=== PATIENT | male | born 1985 | race Caucasian/White ===

== ENCOUNTER 2021-11-18 01:34 | Emergency (ER) | payer BC ==
[2021-11-18] MEDS ORDERED: MORPHINE 4 MG/ML SYR ONE ×2 (02:32→07:53)
[2021-11-18] MEDS ORDERED: NA CHLORIDE 0.9% 1,000 ML ONE ×3 (02:32→07:53)
[2021-11-18] MEDS ORDERED: ONDANSETRON 4 MG/2 ML VIAL ONE ×2 (02:32→07:53)
[2021-11-18 03:09] LABS: Absolute Lymphocytes (CBC) 0.6 K/uL (0.7-4.9); Hematocrit 45.9 % (39.6-49.0); MPV 8.5 fL (7.6-11.3); RBC Red Blood Cell Count 4.91 M/uL (4.33-5.43)
[2021-11-18 03:15] LABS: Protime INR 1.18
[2021-11-18 03:23] LABS: Blood Morphology Comment NOT SEEN (NOT SEEN); Platelet Estimate DECR; White Blood Cell Scan OK (OK)
[2021-11-18 03:41] LABS: Albumin 3.4 g/dL (3.4-5.0); Bilirubin Direct 0.8 mg/dL (0-0.2); Bilirubin Total 1.7 mg/dL (0.2-1.0); Protein, Total 6.9 g/dL (6.4-8.2)
[2021-11-18 03:43] LABS: Potassium 2.8 mmol/L (3.5-5.1)
[2021-11-18] MEDS ORDERED: KCL 20 MEQ/100 mL IVPB 100 ML IV ONE ×2 (04:18→06:11)
[2021-11-18 04:56] LABS: SARS-COV-2 RT PCR NEGATIVE (NEGATIVE)
--- NOTE | 2021-11-18 06:47 | ER ---
Nurse's Notes [facility] Name: Dhaval Morfin Age: 36 yrs Sex: Male : 1985 Arrival Date: 11/18/2021 Time: 01:39 Bed 19 Private MD: Diagnosis: Alcoholic hepatitis;Secondary thrombocytopenia;Hypokalemia Presentation: 11/18 03:26 Chief complaint: Patient states: "My stomach has been hurting about 12-16 hours". kingsley Coronavirus screen: Vaccine status: Patient reports being unvaccinated. Client denies travel out of the [place] in the last 14 days. Ebola Screen: Patient negative for fever greater than or equal to 101.5 degrees Fahrenheit, and additional compatible Ebola Virus Disease symptoms Patient denies exposure to infectious person. Patient denies travel to an Ebola-affected area in the 21 days before illness onset. Initial Sepsis Screen: Does the patient meet any 2 criteria? No. Patient's initial sepsis screen is negative. Risk Assessment: Do you want to hurt yourself or someone else? Patient reports no desire to harm self or others. Onset of symptoms. 03:26 Acuity: ERIC 3 kingsley 03:26 Method Of Arrival: Ambulatory kingsley 05:08 Initial Sepsis Screen: Does the patient have a suspected source of infection? No. kingsley Patient's initial sepsis screen is negative. Triage Assessment: 03:26 General: Appears distressed, Behavior is cooperative. Musculoskeletal: No deficits kingsley noted. Historical: - Allergies: 02:43 No Known Allergies; kingsley - Home Meds: 02:43 None [Active]; kingsley - PMHx: 02:43 None; kingsley - PSHx: 02:43 None; kingsley - Immunization history:: No vaccines. - Social history:: Smoking status: Patient reports the use of cigarette tobacco products, smokes one pack cigarettes per day. Patient uses alcohol, occasionally. Screenin:10 Abuse screen: Denies threats or abuse. Denies injuries from another. Nutritional kingsley screening: No deficits noted. Tuberculosis screening: No symptoms or risk factors identified. Fall Risk None identified. Assessment: 02:10 General: Appears uncomfortable. Pain: Complains of pain in back and abdomen Quality of kingsley pain is described as crampy, sharp, Pain began "12 to 16 hours ago". Neuro: No deficits noted. Cardiovascular: No deficits noted. Respiratory: No deficits noted. GI: Reports intolerance of fluids, intolerance of food, nausea. : No deficits noted. EENT: No deficits noted. Derm: No deficits noted. Musculoskeletal: No deficits noted. 02:47 Reassessment: Patient appears in no apparent distress at this time. Pt sleeping, kingsley awaiting his CT, with clear, even breaths. . 02:59 General: Appears The lab called to say that we needed a redraw on the CBC, as the kingsley platelet count was 13. informed and a Pt/Ptt sent, as well. . 03:24 General: The lab called to say that the pt's platelet count was 11. informed. . kingsley 04:00 Neuro: No deficits noted. kingsley 04:29 General: The pt was taken to CT and has just returned. Placed on the monitor and IV kingsley potassium started. . 08:30 Reassessment: RECD REPORT FROM SIGRID MORALES. 36 [YO WM P/W BACK PAIN. kingsley 09:15 General: Behavior is pt is sleeping, on cardiac cath lab technologist, in no acute distress.. Smells cb5 of. Pain: Unable to use pain scale. pt asleep. Neuro: Level of Consciousness is easily awakened with stimuli. Cardiovascular: No deficits noted. Respiratory: No deficits noted. GI: No deficits noted. : No deficits noted. EENT: No deficits noted. Derm: redness to mouth. Musculoskeletal: pt asleep. 10:15 Reassessment: No changes from previously documented assessment. cb5 10:35 Reassessment: called pharmacy and asked when banana bag will be ready. cb5 12:42 Reassessment: PT up for discharge at this time. Verbal order received from Dr. Larios ss to increase rate of banana bag to 250 mL/hr and reassess/ discharge after infusion is complete. 12:46 Reassessment: Pt up for discharge is ST on cardia monitor 112-115, diaphoretic, pt cb5 states " can I rest more" Informed charge nurse and M.D. 12:48 Reassessment: 09:15 am Received report from nurse Randy R.N. taking over care for this cb5 patient. Banana bag is being prepared in pharmacy. Vital Signs: 02:10 BP 146 / 80; Pulse 66; Resp 18; Temp 98.6; Pulse Ox 100% on R/A; Weight 117.93 kg; kingsley Height 5 ft. 9 in. (175.26 cm); Pain 7/10; 03:58 BP 137 / 78; Pulse 72; Resp 16; Temp 98.5; Pulse Ox 98% on R/A; kingsley 04:28 BP 145 / 75; Pulse 66; Resp 16; Pulse Ox 99% on R/A; kingsley 06:00 BP 145 / 74; Pulse 88; Resp 18; Temp 98.5; Pulse Ox 98% on R/A; kingsley 06:19 BP 163 / 82; Pulse 74; Resp 18; Pulse Ox 98% on R/A; kingsley 07:00 BP 114 / 70; Pulse 84; Resp 18; Pulse Ox 98% ; kingsley 08:00 BP 140 / 76; Pulse 90; Resp 16; Pulse Ox 98% ; ss 10:00 BP 162 / 65; Pulse 104; Resp 16; Temp 98.6; Pulse Ox 98% ; cb5 11:00 BP 129 / 94; Pulse 115; Resp 16; Pulse Ox 98% ; cb5 12:00 BP 129 / 74; Pulse 112; Resp 18; Pulse Ox 98% ; cb5 13:00 BP 137 / 70; Pulse 102; Resp 16; Temp 98.6; Pulse Ox 98% ; cb5 02:10 Body Mass Index 38.39 (117.93 kg, 175.26 cm) kingsley ED Course: 01:39 Patient arrived in ED. bp1 01:54 Marshal Zuleta MD is Attending Physician. kdr 02:01 Sigrid Maldonado, RN is Primary Nurse. kingsley 02:10 No provider procedures requiring assistance completed. Inserted saline lock: 18 gauge kingsley in right antecubital area, using aseptic technique. 02:10 Patient has correct armband on for positive identification. Placed in gown. Bed in low kingsley position. Call light in reach. Noise minimized. Lights dimmed. Warm blanket given. Verbal reassurance given. 02:29 Lipase Sent. kingsley 02:29 Hepatic Function Sent. kingsley 02:29 CBC with Diff Sent. kingsley 02:29 Basic Metabolic Panel Sent. kingsley 03:13 Protime (+INR) Sent. kingsley 03:13 PTT, Activated Partial Thromb Sent. kingsley 03:13 CBC Smear Scan Sent. kingsley 03:14 PT-INR Sent. kingsley 03:14 Ptt, Activated Sent. kingsley 03:28 Triage completed. kingsley 04:01 Magnesium Sent. kingsley 04:01 playground monitor on. Pulse ox on. NIBP on. kingsley 04:11 COVID-19/FLU A+B (Document "Date of Onset" if Symptomatic) Sent. kingsley 04:33 CT Abd/Pelvis - IV Contrast Only In Process Unspecified. EDMS 04:50 COVID-19/FLU A+B (Document "Date of Onset" if Symptomatic) Sent. kingsley 05:07 Patient placed on monitor for kcl infusion. kingsley 06:02 Hepatitis Panel Sent. kingsley 07:10 Attending Physician role handed off by Marshal Zuleta MD ma2 07:10 Alonzo Larios MD is Attending Physician. ma2 07:42 US Abdomen Limited In Process Unspecified. EDMS 09:21 Primary Nurse role handed off by Sigrid Maldonado, CARMEN eb 09:30 No apparent distress. Appears to be sleeping. cb5 09:30 Accessed Clean \\T\\ dry. Dressing intact. Good blood return. Flushes easily. cb5 09:30 Patient has correct armband on for positive identification. Bed in low position. Call cb5 light in reach. Side rails up X2. 10:30 No apparent distress. Appears to be sleeping. cb5 10:30 Patient has correct armband on for positive identification. Bed in low position. Call cb5 light in reach. Side rails up X2. 10:32 Dolly John, RN is Primary Nurse. cb5 11:30 Patient has correct armband on for positive identification. Bed in low position. Call cb5 light in reach. Side rails up X2. Administered Medications: 07:04 Discontinued: Potassium Chloride 20 mEq IV at calculated rate once; administer over 1-2 kingsley hours 02:45 Drug: morphine 4 mg Route: IVP; Site: right antecubital; kingsley 02:49 Follow up: Response: No adverse reaction; Pain is decreased kingsley 02:45 Drug: Zofran (Ondansetron) 4 mg Route: IVP; Site: right antecubital; kingsley 02:49 Follow up: Response: No adverse reaction kingsley 02:45 Drug: NS 0.9% 1000 ml Route: IV; Rate: 1 bolus; Site: right antecubital; kingsley 04:28 Drug: Potassium Chloride 20 mEq Route: IV; Rate: calculated rate; Site: right kingsley antecubital; 06:17 Follow up: Response: No adverse reaction; IV Status: Completed infusion; IV Intake: kingsley 100ml 06:18 Drug: Potassium Chloride 20 mEq Route: IV; Rate: calculated rate; Site: right kingsley antecubital; 07:30 Drug: NS 0.9% 1000 ml Route: IV; Rate: 1 bolus; Site: right antecubital; kingsley 07:30 Drug: Zofran (Ondansetron) 4 mg Route: IVP; Site: right antecubital; kingsley 07:30 Drug: morphine 4 mg Route: IVP; Site: right antecubital; kingsley 07:30 Drug: Pepcid (famotidine) 20 mg Route: IVP; Site: right antecubital; kingsley 11:10 Drug: Banana Bag - (NS 0.9% 1000 ml, foLIC Acid 1 mg, Thiamine 100 mg, Multivitamin 1 cb5 amp) Route: IV; Rate: 100 ml/hr; Site: right antecubital; 12:41 Follow up: Verbal order given by Dr. Larios to incrase rate to 250 mL/ hr at this time.ss Intake: 06:17 IV: 100ml; Total: 100ml. kingsley Output: 06:19 Urine: 400ml (Voided); Total: 400ml. kingsley Outcome: 04:00 Condition: stable kingsley 06:47 Discharge ordered by . siobhan 09:28 Discharge ordered by MD. rodriguez 16:28 Patient left the ED. eb Signatures: Dispatcher [employer] EDMS Marshal Zuleta MD MD kdr Smirch, Shelby, RN RN Alonzo Larios MD MD ma2 Botello, Elizabeth Liliya Gutiérrez Brenda RN RN Dolly Herrera RN RN cb5 Corrections: (The following items were deleted from the chart) 06:01 04:45 Potassium Chloride 20 mEq IV at calculated rate in right antecubital kingsley kingsley 12:13 10:35 Reassessment: called pharmacy and asked when banana bag will be ready cb5 cb5 12:34 08:00 BP 140 / 76; Pulse 9bpm; Resp 16bpm; Pulse Ox 98%; kingsley ss
--- NOTE | 2021-11-18 06:47 | EDPHYS ---
Physician Documentation [facility] Name: Dhaval Morfin Age: 36 yrs Sex: Male : 1985 Arrival Date: 11/18/2021 Time: 01:39 Bed 19 Private MD: ED Physician Alonzo Larios HPI: 11/18 02:20 This 36 yrs old Male presents to ER via Unassigned with complaints of Back Pain. kdr 02:20 The patient presents with pain that is acute, with no known mechanism of injury. The kdr symptoms are located in the low back. Onset: The symptoms/episode began/occurred suddenly, 16 hour(s) ago. The pain does not radiate. Associated signs and symptoms: Pertinent positives: abdominal pain, nausea, vomiting, weakness, Pertinent negatives: constipation, dysuria, fever, headache, hematuria, incontinence, numbness, tingling, urinary retention. The problem was sustained without known cause. Modifying factors: The patient symptoms are alleviated by nothing, the patient symptoms are aggravated by nothing. Severity of symptoms: At their worst the symptoms were moderate, severe, incapacitating, just prior to arrival, in the emergency department the symptoms are unchanged. The patient has not experienced similar symptoms in the past. The patient has not recently seen a physician. Historical: - Allergies: 02:43 No Known Allergies; kingsley - Home Meds: 02:43 None [Active]; kingsley - PMHx: 02:43 None; kingsley - PSHx: 02:43 None; kingsley - Immunization history:: No vaccines. - Social history:: Smoking status: Patient reports the use of cigarette tobacco products, smokes one pack cigarettes per day. Patient uses alcohol, occasionally. ROS: 02:20 Constitutional: Negative for fever, chills, and weight loss, Eyes: Negative for injury, kdr pain, redness, and discharge, ENT: Negative for injury, pain, and discharge, Neck: Negative for injury, pain, and swelling, Cardiovascular: Negative for chest pain, palpitations, and edema, Respiratory: Negative for shortness of breath, cough, wheezing, and pleuritic chest pain, : Negative for injury, bleeding, discharge, and swelling, MS/Extremity: Negative for injury and deformity, Skin: Negative for injury, rash, and discoloration, Neuro: Negative for headache, weakness, numbness, tingling, and seizure activity. Psych: Negative for depression, anxiety, suicide ideation, homicidal ideation, and hallucinations, Allergy/Immunology: Negative for hives, rash, and allergies, Endocrine: Negative for neck swelling, polydipsia, polyuria, polyphagia, and marked weight changes, Hematologic/Lymphatic: Negative for swollen nodes, abnormal bleeding, and unusual bruising. 02:20 Abdomen/GI: Positive for abdominal pain, nausea and vomiting, Negative for constipation, abdominal cramps, abdominal distension, anorexia, dysphagia, hematemesis, black/tarry stool, rectal pain, rectal bleeding. 02:20 Back: Positive for pain at rest, pain with movement, of the mid back area. Exam: 02:20 Constitutional: This is a well developed, well nourished patient who is awake, alert, kdr and in no acute distress. Head/Face: Normocephalic, atraumatic. Eyes: Pupils equal round and reactive to light, extra-ocular motions intact. Lids and lashes normal. Conjunctiva and sclera are non-icteric and not injected. Cornea within normal limits. Periorbital areas with no swelling, redness, or edema. Neck: Trachea midline, no thyromegaly or masses palpated, and no cervical lymphadenopathy. Supple, full range of motion without nuchal rigidity, or vertebral point tenderness. No Meningismus. Chest/axilla: Normal chest wall appearance and motion. Nontender with no deformity. No lesions are appreciated. Cardiovascular: Regular rate and rhythm with a normal S1 and S2. No gallops, murmurs, or rubs. Normal PMI, no JVD. No pulse deficits. Respiratory: Lungs have equal breath sounds bilaterally, clear to auscultation and percussion. No rales, rhonchi or wheezes noted. No increased work of breathing, no retractions or nasal flaring. Skin: Warm, dry with normal turgor. Normal color with no rashes, no lesions, and no evidence of cellulitis. MS/ Extremity: Pulses equal, no cyanosis. Neurovascular intact. Full, normal range of motion. Neuro: Awake and alert, GCS 15, oriented to person, place, time, and situation. Cranial nerves II-XII grossly intact. Motor strength 5/5 in all extremities. Sensory grossly intact. Cerebellar exam normal. Normal gait. Psych: Awake, alert, with orientation to person, place and time. Behavior, mood, and affect are within normal limits. 02:20 Abdomen/GI: Inspection: abdomen appears normal, Bowel sounds: diminished, in all quadrants, Palpation: Vital Signs: 02:10 BP 146 / 80; Pulse 66; Resp 18; Temp 98.6; Pulse Ox 100% on R/A; Weight 117.93 kg; kingsley Height 5 ft. 9 in. (175.26 cm); Pain 7/10; 03:58 BP 137 / 78; Pulse 72; Resp 16; Temp 98.5; Pulse Ox 98% on R/A; kingsley 04:28 BP 145 / 75; Pulse 66; Resp 16; Pulse Ox 99% on R/A; kingsley 06:00 BP 145 / 74; Pulse 88; Resp 18; Temp 98.5; Pulse Ox 98% on R/A; kingsley 06:19 BP 163 / 82; Pulse 74; Resp 18; Pulse Ox 98% on R/A; kingsley 07:00 BP 114 / 70; Pulse 84; Resp 18; Pulse Ox 98% ; kingsley 08:00 BP 140 / 76; Pulse 90; Resp 16; Pulse Ox 98% ; ss 10:00 BP 162 / 65; Pulse 104; Resp 16; Temp 98.6; Pulse Ox 98% ; cb5 11:00 BP 129 / 94; Pulse 115; Resp 16; Pulse Ox 98% ; cb5 12:00 BP 129 / 74; Pulse 112; Resp 18; Pulse Ox 98% ; cb5 13:00 BP 137 / 70; Pulse 102; Resp 16; Temp 98.6; Pulse Ox 98% ; cb5 02:10 Body Mass Index 38.39 (117.93 kg, 175.26 cm) kingsley MDM: 02:20 Data reviewed: vital signs, nurses notes, lab test result(s), radiologic studies. kdr Counseling: I had a detailed discussion with the patient and/or guardian regarding: the historical points, exam findings, and any diagnostic results supporting the discharge/admit diagnosis, lab results, radiology results. 06:47 Patient medically screened. kdr 06:50 ED course: The patient's pain resolved at time of discharge. He was happy with the care kdr provided and the plan for discharge and follow-up. 09:08 Response to treatment: the patient's symptoms have markedly improved after treatment. [facility] ED course: . 09:23 Differential diagnosis: sprain, vertebral fracture. ED course: Received signout from [facility] Dr. kohler, as patient with back pain, pending work-up, and disposition. I saw and evaluated the patient, and talked him to history. Patient has chronic back pain that has resolved at this time, however he stated that he also drinks alcohol heavily. At this point patient does not have any symptoms. And would like to go home. Vital signs are all within normal limits, documented in the chart that pulse is 9 however this was entered by mistake, pulse is 87 bpm at this time. Lab work shows elevation in liver transaminases, to 800s, and thrombocytopenia with a platelet of 11,000. Patient is not bleeding anywhere, and he does not have any abdominal pain at this time or right upper quadrant abdominal discomfort. 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 Other differential diagnosis may include Josiane-Fletcher virus, HIV, ITP or TTP although these are unlikely. Patient does not need platelet transfusion at this time as he does not have any bleeding and platelet is more than 10,000. He will need follow-up with GI for further evaluation of hepatitis, I explained to him risk of having low platelet, may include bleeding, I explained and recommended return to ER immediately for platelet transfusion if you have any bleeding, give strict return precaution. He states that he will follow-up with GI doctor on Friday or Friday i.e. 2 days from now. He also understand that he needs to return to ER immediately for any new symptoms or worsening of current symptoms.. 09:32 ED course: Patient also has hypokalemia, given potassium IV, symptoms improved and will [facility] prescribe potassium tablets as well. I gave strict return precautions. 11/18 02:20 Order name: Basic Metabolic Panel; Complete Time: 03:44 kdr 11/18 02:20 Order name: CBC with Diff; Complete Time: 03:30 kdr 11/18 02:20 Order name: Hepatic Function; Complete Time: 03:44 kdr 11/18 02:20 Order name: Lipase; Complete Time: 03:44 kdr 11/18 02:56 Order name: PT-INR cs9 11/18 02:56 Order name: Ptt, Activated cs9 11/18 02:57 Order name: Protime (+INR); Complete Time: 03:30 EDMS 11/18 02:57 Order name: PTT, Activated Partial Thromb; Complete Time: 03:30 EDMS 11/18 03:11 Order name: CBC Smear Scan; Complete Time: 03:30 EDMS 11/18 03:28 Order name: COVID-19/FLU A+B (Document "Date of Onset" if Symptomatic); Complete Time: kdr 05:21 11/18 03:43 Order name: [place] Screen Profile; Complete Time: 04:21 kdr 11/18 03:48 Order name: Magnesium; Complete Time: 04:21 la1 11/18 04:33 Order name: Hepatitis Panel la1 11/18 02:20 Order name: IV Saline Lock; Complete Time: 02:29 kdr 11/18 02:20 Order name: Labs collected and sent; Complete Time: 02:29 kdr 11/18 02:20 Order name: CT Abd/Pelvis - IV Contrast Only kdr 11/18 07:01 Order name: US Abdomen Limited; Complete Time: 08:32 kdr Administered Medications: 07:04 Discontinued: Potassium Chloride 20 mEq IV at calculated rate once; administer over 1-2 kingsley hours 02:45 Drug: morphine 4 mg Route: IVP; Site: right antecubital; kingsley 02:49 Follow up: Response: No adverse reaction; Pain is decreased kingsley 02:45 Drug: Zofran (Ondansetron) 4 mg Route: IVP; Site: right antecubital; kingsley 02:49 Follow up: Response: No adverse reaction kingsley 02:45 Drug: NS 0.9% 1000 ml Route: IV; Rate: 1 bolus; Site: right antecubital; kingsley 04:28 Drug: Potassium Chloride 20 mEq Route: IV; Rate: calculated rate; Site: right kingsley antecubital; 06:17 Follow up: Response: No adverse reaction; IV Status: Completed infusion; IV Intake: kingsley 100ml 06:18 Drug: Potassium Chloride 20 mEq Route: IV; Rate: calculated rate; Site: right kingsley antecubital; 07:30 Drug: NS 0.9% 1000 ml Route: IV; Rate: 1 bolus; Site: right antecubital; kingsley 07:30 Drug: Zofran (Ondansetron) 4 mg Route: IVP; Site: right antecubital; kingsley 07:30 Drug: morphine 4 mg Route: IVP; Site: right antecubital; kingsley 07:30 Drug: Pepcid (famotidine) 20 mg Route: IVP; Site: right antecubital; kingsley 11:10 Drug: Banana Bag - (NS 0.9% 1000 ml, foLIC Acid 1 mg, Thiamine 100 mg, Multivitamin 1 cb5 amp) Route: IV; Rate: 100 ml/hr; Site: right antecubital; 12:41 Follow up: Verbal order given by Dr. Larios to incrase rate to 250 mL/ hr at this time.ss Disposition Summary: 11/18/21 09:28 Discharge Ordered Location: Home(11/18/21 09:28) ma2 Condition: Stable(11/18/21 09:28) ma2 Diagnosis - Alcoholic hepatitis ma2 - Secondary thrombocytopenia ma2 - Hypokalemia ma2 Followup: ma2 - With: Private Physician - When: Tomorrow - Reason: Continuance of care Discharge Instructions: - Discharge Summary Sheet ma2 - Eating Plan for Hepatitis ma2 - Potassium Content of Foods ma2 - Alcohol Intoxication, [id number] ma2 - Autoimmune Hepatitis, Adult ma2 - Alcohol Abuse and Nutrition ma2 - Hypokalemia ma2 - Thrombocytopenia, [id number] ma2 Forms: - Medication Reconciliation Form ma2 - Thank You Letter ma2 - Antibiotic Education ma2 - Prescription Opioid Use ma2 Prescriptions: - Klor-Con 10 10 mEq Oral Tablet Sustained Release - take 1 tablet by ORAL route once daily; 20 tablet; Refills: 0, Product ma2 Selection Permitted Signatures: Dispatcher [employer] EDMI Marshal Kohler MD MD kdr David Truong, DIRECTOR STATISTICAL PROGRAMMING-C DIRECTOR STATISTICAL PROGRAMMING-Cla1 Alonzo Larios MD MD ma2 Sigrid Maldonado, RN Dolly Cota, RN RN Samira Calderon RN ss Corrections: (The following items were deleted from the chart) 02:52 02:49 CBC Smear Scan ordered. EDMI EDMS 06:59 06:47 Home kdr kdr 06:59 06:47 new kdr kdr 06:59 06:47 have improved kdr kdr 06:59 06:47 Stable kdr kdr 06:59 06:47 Unspecified renal colic kdr kdr 06:59 06:47 Kidney stone kdr kdr
[2021-11-18] MEDS ORDERED: FAMOTIDINE 20 MG/2 ML VIAL IV ONE (07:53)
--- NOTE | 2021-11-18 08:11 | RAD REPORT ---
EXAM DESCRIPTION: US - Abdomen Exam Limited - 11/18/2021 7:42 am CLINICAL HISTORY: Abdominal pain. FINDINGS: The gallbladder wall is not thickened. A gallstone is not seen. The biliary tree is normal caliber. Fatty liver IMPRESSION: Unremarkable gallbladder ultrasound.
[2021-11-18] MEDS ORDERED: FOLIC ACID 1 MG, MULTIVITAMINS INJ 10 ML, THIAMINE HCL 100 MG in NA CHLORIDE 0.9% 1,000 ML IV ONE (11:00)
--- NOTE | 2021-11-18 15:39 | RAD REPORT ---
EXAM DESCRIPTION: CT - Abdomen Pelvis W Contrast - 11/18/2021 8:00 am CLINICAL HISTORY: 36 years Male ABD PAIN TECHNIQUE: CT of the abdomen and pelvis using intravenous contrast arterial phase of the upper abdom en and venous phase through the abdomen and pelvis. Coronal and sagittal reformats performed. All CT scans at this facility use dose modulation, iterative reconstruction, and/or weight based dosing when appropriate to reduce radiation dose to as low as reasonably achievable. COMPARISON: None. FINDINGS: Lower chest: Minimal bibasilar dependent atelectasis. Abdomen/Pelvis: Liver: No focal lesion. Gallbladder: No calcified stone. Pancreas: Within normal limits. Spleen: Within normal limits. Kidney: No stone or hydronephrosis. No focal lesion. Adrenal glands: Within normal limits. Vascular structures: Unremarkable. Bowel: No bowel distention. Appendix: Normal. Peritoneum: No free fluid or free air. Lymph Nodes: No lymphadenopathy. Reproductive: Unremarkable. Urinary bladder: Unremarkable. Osseous structures: Mild multilevel degenerative changes. Soft tissues: Unremarkable. IMPRESSION: No acute findings. Electronically signed by: Jason Carlson MD 11/18/2021 6:14 AM LOOM FIXER SUPERVISOR Due to temporary technical issues with the PACS/Fluency reporting system, reports are being signed by the in house radiologists without review as a courtesy to insure prompt reporting. The interpreting radiologist is fully responsible for the content of the report.
[2021-11-18 16:39] VITALS: O2SAT 98
[2021-11-18 16:48] VITALS: TEMP 98.6
[2021-11-18 16:52] VITALS: BP 137/70
[2021-11-20 19:04] LABS: HBsAG Nonreactive (Nonreactive)
== END 2021-11-18 16:28 | disposition home or self-care (01) ==
LOC: ER 01:34
DX: K70.10 Alcoholic hepatitis without ascites (principal); D69.59 Other secondary thrombocytopenia; E87.6 Hypokalemia; F17.210 Nicotine dependence, cigarettes, uncomplicated; Z20.822 Contact with and (suspected) exposure to COVID-19
CPT/HCPCS: 96365; 85025; 80048; 36415; 83735; 86308; 85610; 80076; 85730; 83690; 0240U; 80074; 74177; 76705; 96375; 99285; 96366; Q9967; J3411; J3480 ×2; J7030 ×4; J2405 ×2

== ENCOUNTER 2021-11-19 16:37 | Emergency (ER) | payer BC ==
[2021-11-19] MEDS ORDERED: EPINEPHrine 1 MG/10 ML SYR IV ONE (16:38)
[2021-11-19] MEDS ORDERED: SUCCINYLCHOLINE 20 MG/ML (10 ML) IV ONE ×2 (16:38→21:21)
[2021-11-19] MEDS ORDERED: D50W 25 GM/50 ML SYRINGE IV ONE ×2 (16:38→19:27)
[2021-11-19] MEDS ORDERED: NA CHLORIDE 0.9% 1,000 ML IV ONE (16:38)
[2021-11-19] MEDS ORDERED: Caclcium Chloride 10% INJ SYR IV ONE (16:38)
[2021-11-19] MEDS ORDERED: NA CHLORIDE 0.9% 500 ML IV ONE (16:38)
[2021-11-19] MEDS ORDERED: NA CHLORIDE 0.9% 500 ML ONE ×3 (17:29→22:51)
[2021-11-19] MEDS ORDERED: NA CHLORIDE 0.9% 1,000 ML ONE (17:33)
[2021-11-19 17:38] LABS: Absolute Lymphocytes (CBC) 0.6 K/uL (0.7-4.9); Hematocrit 43.6 % (39.6-49.0); Lymphocytes % 2.4 % (15.3-44.8); MPV 10.3 fL (7.6-11.3); RBC Red Blood Cell Count 4.41 M/uL (4.33-5.43)
[2021-11-19] MEDS ORDERED: PROMETHAZINE INJ 25 MG/ML AMP ONE (17:43)
[2021-11-19] MEDS ORDERED: PANTOPRAZOLE 40 MG INJ ONE (17:43)
[2021-11-19] MEDS ORDERED: ONDANSETRON 4 MG/2 ML VIAL ONE (17:43)
[2021-11-19] MEDS ORDERED: OCTREOTIDE ACETATE 100 MCG/ML ONE (17:44)
[2021-11-19] MEDS ORDERED: OCTREOTIDE 500 MCG in NA CHLORIDE 0.9% 500 ML IV SCH (18:00)
[2021-11-19] MEDS ORDERED: PANTOPRAZOLE INJ 80 MG in NA CHLORIDE 0.9% 250 ML IV SCH (18:00)
[2021-11-19] MEDS ORDERED: NA CHLORIDE 0.9% 250 ML ONE ×2 (18:01→21:31)
[2021-11-19 18:02] LABS: Albumin 2.8 g/dL (3.4-5.0); Bilirubin Direct 3.1 mg/dL (0-0.2); Magnesium 1.9 mg/dL (1.8-2.4); Potassium 4.7 mmol/L (3.5-5.1); Protein, Total 5.4 g/dL (6.4-8.2)
[2021-11-19 18:05] LABS: Bilirubin Total 5.9 mg/dL (0.2-1.0); Protime INR 9.82; Troponin (Emerg Dept Use Only) 0.98 ng/mL (0.0-0.045)
--- NOTE | 2021-11-19 18:30 | RAD REPORT ---
EXAM DESCRIPTION: CT - Head C Spine Cap Ofelia Swain - 11/19/2021 6:14 pm CLINICAL HISTORY: Trauma, head and neck injury. Chest, abdomen and pelvis pain. significant thrombocytopenia. abdominal pain, headache COMPARISON: No comparisons TECHNIQUE: CT head without contrast. CT cervical spine without contrast with coronal and sagittal reformatted images. CT chest, abdomen and pelvis with IV contrast (approximately 100 mL nonionic IV contrast) with cedeno l and sagittal reformatted images of the spine. All CT scans are performed using dose optimization technique as appropriate and may include automated exposure control or mA/KV adjustment according to patient size. FINDINGS: CT HEAD WITHOUT CONTRAST: No intracranial hemorrhage, hydrocephalus or extra-axial fluid collection. No areas of brain edema o r midline shift. The paranasal sinuses and mastoids are clear. The calvarium is intact. CT CERVICAL SPINE WITHOUT CONTRAST: No fracture or subluxation. The prevertebral soft tissues are normal in thickness. CT CHEST, ABDOMEN, PELVIS WITH CONTRAST: There is a moderate area of lung consolidation in superior segment left lower lobe likely representin g infiltrate/pneumonia.No pneumothorax or pericardial/pleural fluid. No evidence of intra-abdominal visceral injury, free fluid or free air. No concerning pelvic findings. No fractures. IMPRESSION: Moderate area of pneumonia superior segment lower lobe. No additional acute abnormality detected.
--- NOTE | 2021-11-19 18:41 | RAD REPORT ---
EXAM DESCRIPTION: RAD - Chest Single View - 11/19/2021 6:33 pm CLINICAL HISTORY: DYSPNEA Chest pain. COMPARISON: No comparisons FINDINGS: Portable technique limits examination quality. Mild interstitial opacities bilaterally suggest a mild viral infection. The heart is upper limit of n ormal in size. No displaced fractures.
[2021-11-19] MEDS ORDERED: ACETYLCYSTEINE IV SCH ×5 (19:01→23:00)
[2021-11-19] MEDS ORDERED: D5W IV SCH ×4 (19:01→23:00)
[2021-11-19] MEDS ORDERED: WATER IV SCH (19:11)
[2021-11-19] MEDS ORDERED: DEXTROSE 5% IV SCH (19:11)
[2021-11-19] MEDS ORDERED: D5 0.45 NS 1,000 ML IV ONE (19:27)
[2021-11-19] MEDS ORDERED: VITAMIN K (ADULT) 10 MG/ML ONE ×2 (19:33→22:06)
[2021-11-19] MEDS ORDERED: PIPERACIL/TAZO 3.375 GM VIAL IV ONE (19:59)
[2021-11-19] MEDS ORDERED: WATER FOR INJ,STERILE 1,000 ML with NA BICARB 8.4% 150 MEQ IV SCH ×2 (20:00)
[2021-11-19] MEDS ORDERED: NA CHLORIDE 0.9% 100 ML ONE (20:02)
--- NOTE | 2021-11-19 20:04 | ER ---
Nurse's Notes [facility] Name: Dhaval Morfin Age: 36 yrs Sex: Male : 1985 Arrival Date: 11/19/2021 Time: 16:39 Bed 2 Private MD: Diagnosis: Hepatic failure, unspecified with coma;Acute kidney failure, unspecified;GI Bleed/ Gastrointestinal hemorrhage, unspecified-UPPER, MASSIVE;Anemia, unspecified;Elevated white blood cell count;Abnormal coagulation profile;Coagulation defect, unspecified;Acute respiratory failure with hypoxia;Hypotension, unspecified;Cardiogenic shock;Hyperkalemia Presentation: 11/19 17:04 Chief complaint: Patient states: Worse since his last visit here. Vomiting blood today. ll1 Bruising noted to both eyes, eyes reddened. Bruising noted to all extremities. Very lethargic and weak. Coronavirus screen: Client denies travel out of the [place] in the last 14 days. At this time, the client does not indicate any symptoms associated with coronavirus-19. Ebola Screen: Patient denies travel to an Ebola-affected area in the 21 days before illness onset. Initial Sepsis Screen: Does the patient meet any 2 criteria? RR > 20 per min. HR > 90 bpm. Does the patient have a suspected source of infection? Yes: Acute abdominal pain. Risk Assessment: Do you want to hurt yourself or someone else? Patient reports no desire to harm self or others. Onset of symptoms was November 17, 2021. 17:04 Method Of Arrival: Wheelchair ll1 17:04 Acuity: ERIC 2 ll1 11/20 05:22 Compressions began at 05:22. mk Historical: - Allergies: 00:03 No Known Allergies; as6 - Home Meds: 00:03 None [Active]; as6 - PMHx: 00:03 Bipolar disorder; as6 - PSHx: 00:03 hernia; as6 - Immunization history:: Adult Immunizations up to date. - Social history:: Smoking status: Patient reports the use of cigarette tobacco products, smokes one pack cigarettes per day. Screenin/10 18:41 Abuse screen: Denies threats or abuse. Nutritional screening: No deficits noted. jd3 Tuberculosis screening: No symptoms or risk factors identified. Fall Risk IV access (20 points). Mental Status- Overestimates/Forgets Limitations (15 pts.). Total Xavier Fall Scale indicates Low Risk Score (25-44 pts). Fall prevention measures have been instituted. Side Rails Up X 2 Placed close to Nursing Station Frequent Obs/Assesments occuring. Assessment: 17:30 General: Appears distressed, uncomfortable, Behavior is cooperative, anxious, restless, jd3 Reports fatigue for 2-3 days. Pain: Complains of pain in abdomen Quality of pain is described as sharp, tender. Neuro: Level of Consciousness is awake, obeys commands, lethargic, Oriented to person, place, situation. Cardiovascular: Heart tones present Patient's skin is warm and dry. Rhythm is irregular. Respiratory: Reports shortness of breath at rest Airway is patent Respiratory effort is labored, shallow, Respiratory pattern is symmetrical, hyperventilation tachypnea Breath sounds are clear bilaterally. GI: Abdomen is round distended, Abd is soft X 4 quads Abdomen is tender to palpation X 4 quads. : No signs and/or symptoms were reported regarding the genitourinary system. Derm: Bruising that is dark purple, on right eye, left eye, abdomen, right arm and left arm dried blood noted in mouth. Musculoskeletal: No signs and/or symptoms reported regarding the musculoskeletal system. 18:00 Reassessment: No changes from previously documented assessment. Patient and/or family jd3 updated on plan of care and expected duration. Pain level reassessed. blood products started, see blood administration charting. 18:30 Reassessment: No changes from previously documented assessment. Patient and/or family jd3 updated on plan of care and expected duration. Pain level reassessed. 18:45 Reassessment: No changes from previously documented assessment. Patient and/or family jd3 updated on plan of care and expected duration. Pain level reassessed. pt continues to report shortness of breath with abdominal pain. pt continues to have tachypnea. mother at bedside. report given to Enmanuel RN Patient states symptoms have not improved. 20:49 General: Behavior is agitated, restless. as6 21:26 Respiratory: Ventilator assessment: ET Tube: 7.5 23 cm at gum line. Ventilator Mode: as6 Assist Control (AC) Tidal Volume: 600 Respiratory Rate: 18 FiO2: 100%. PEEP: 5 HOB > 30 degrees. Suction provided. 21:26 General: intubation performed by Dr. Xiang, 3 unsuccessful attempts, during insertion of as6 et tube dark red blood coming out of tube during each unsuccessful attempt. approx 2000 ml of EBL . 23:50 Respiratory: Ventilator assessment: ET Tube: 7.5 23 cm at gum line. Ventilator Mode: as6 Assist Control (AC) Tidal Volume: 600 Respiratory Rate: 18 FiO2: 75 PEEP: 5 HOB > 30 degrees. 11/20 05:22 CPR assessment: unresponsive, no respiratory effort, intubated, mechanical ventilation, mk cyanotic, pale, pulses present w/ compressions, asystole on monitor. 05:22 Reassessment: Compressions started 0522. mk 05:24 Reassessment: pulse check 0524. mk 05:26 Cardiac rhythm is asystole. mk 05:26 Reassessment: TOD called 05. mk 07:00 Reassessment: awaiting home. PD and family at bedside. jd3 Vital Signs: 11/19 17:04 BP 100 / 46; Pulse 127; Resp 32; Temp 96.8; Pulse Ox 99% ; ll1 18:41 BP 96 / 52; Pulse 114; Resp 38 S; Temp 97.2(TE); Pulse Ox 97% on R/A; jd3 18:45 Weight 118 kg (R); jd3 19:35 BP 109 / 55; Pulse 117; Resp 44; Temp 98.0; Pulse Ox 97% ; st1 20:57 BP 81 / 33; Pulse 114; Resp 27 S; Pulse Ox 70% on Non-rebreather mask; as6 21:12 BP 104 / 92; Pulse 94; Resp 34 S; as6 21:35 BP 115 / 73; Pulse 97; Resp 18 A; Pulse Ox 91% on 100% FiO2 ETT vent; as6 22:00 BP 67 / 21; Pulse 85; Resp 24 A; Pulse Ox 96% on 100% FiO2 ETT vent; as6 22:15 BP 89 / 21; Pulse 84; Resp 22 A; Pulse Ox 98% on 100% FiO2 ETT vent; as6 22:30 BP 91 / 25; Pulse 91; Resp 27 A; Pulse Ox 100% on 100% FiO2 ETT vent; as6 22:45 BP 85 / 47; Pulse 92; Resp 27 A; Pulse Ox 100% on 100% FiO2 ETT vent; as6 23:00 BP 100 / 18; Pulse 89; Resp 28 A; Pulse Ox 100% on 100% FiO2 ETT vent; as6 23:15 BP 92 / 18; Pulse 91; Resp 28 A; Pulse Ox 100% on 100% FiO2 ETT vent; as6 23:30 BP 100 / 28; Pulse 102; Resp 28 A; Pulse Ox 100% on 100% FiO2 ETT vent; as6 23:45 BP 112 / 25; Pulse 102; Resp 26; Temp 94.6(C); Pulse Ox 100% on 100% FiO2 ETT vent; 6 11/20 00:00 BP 96 / 27; Pulse 99; Resp 28 A; Temp 95.3(C); Pulse Ox 100% on 75% FiO2 ETT vent; 00:30 BP 95 / 26; Pulse 102; Resp 29 A; Temp 95.9(C); Pulse Ox 99% on 75% FiO2 ETT vent; 6 01:00 BP 105 / 67; Pulse 86; Resp 30 A; Temp 96.5(C); Pulse Ox 100% on 75% FiO2 ETT vent; 01:30 BP 94 / 61; Pulse 86; Resp 31 A; Temp 97.3(C); Pulse Ox 98% on 75% FiO2 ETT vent; 02:00 BP 82 / 21; Pulse 89; Resp 29 A; Temp 98.0(C); Pulse Ox 100% on 75% FiO2 ETT vent; 02:30 BP 89 / 13; Pulse 90; Resp 29 A; Temp 98.8(C); Pulse Ox 85% on 100% FiO2 ETT vent; 03:00 BP 74 / 18; Pulse 84; Resp 27 A; Temp 99.6(C); Pulse Ox 99% on 100% FiO2 ETT vent; 6 03:30 BP 69 / 39; Pulse 86; Resp 26 A; Temp 100.2(C); Pulse Ox 95% on 100% FiO2 ETT vent; 6 04:00 BP 68 / 17; Pulse 100; Resp 21 A; Temp 100.3(C); Pulse Ox 90% on 100% FiO2 ETT vent; as6 04:30 BP 85 / 48; Pulse 72; Resp 11 A; Temp 100.3(C); Pulse Ox 97% on 100% FiO2 ETT vent; as6 05:00 BP 51 / 39; Pulse 83; Resp 17 A; Temp 100.2(C); Pulse Ox 89% on 100% FiO2 ETT vent; as6 ED Course: 11/19 16:39 Patient arrived in ED. ds1 17:02 Arm band placed on Patient placed in an exam room, on a stretcher. ll1 17:05 Triage completed. ll1 17:06 Troy Brock PA is [facility]. jr8 17:06 Santi Carbajal MD is Attending Physician. jr8 17:25 Holden Giraldo, CARMEN is Primary Nurse. jd3 18:14 CT Traumagram (Head C Spine CAP W Con) In Process Unspecified. EDMS 18:32 XRAY Chest (1 view) In Process Unspecified. EDMS 18:42 Patient has correct armband on for positive identification. Placed in gown. Bed in low jd3 position. Call light in reach. Side rails up X2. 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 Pulse ox on. NIBP on. 19:25 initiated a transfer with Mayra Sanchez from [facility] Transfer [place]. [facility] mw2 denied to capacity. 19:30 initiated a transfer with Cary Sanchez from [facility] [place]. [facility] denied due to capacity. 19:30 Assisted provider with central line placement. Set up central line tray. Triple lumen as6 line placed in right femoral. Line placed by Troy WALLACE Placement verified by blood return, Dressed with Tegaderm, Patient tolerated well. 19:35 initiated a transfer with [facility]. [facility] denied due to capacity. mw2 19:36 Terry cath inserted, using sterile technique, 16 Fr., by wi, balloon inflated, to vg1 gravity drainage, Patient tolerated well. 19:40 Initiated a transfer with [facility] Transfer Center. [facility] denied due to capacity. mw2 19:51 Attending Physician role handed off by Santi Carbajal MD angel 19:51 Raghavendra Simmons MD is Attending Physician. angel 21:26 Assisted provider with intubation using 7.5 mm ETT via oral route. ET tube secured at as6 23cm at the teeth. Set up intubation tray. Placement verified by auscultating bilateral breath sounds, End-tidal CO2 montioring CXR, Patient tolerated well. 21:29 initiated a transfer with Eugene from [facility] transfer center. mw2 21:35 NGT: inserted 16 Fr. via right nare. verified placement of air over stomach, verified as6 return of gastric contents, Placement verified by X-ray, to continuous suction. Returned bright red blood. 21:40 [facility] denied due to capacity. mw2 21:42 initiated a transfer with Guerda from [facility] in [place]. mw2 They denied due to capacity. 21:45 Chest Single View XRAY In Process Unspecified. EDMS 21:47 initiated a transfer with Tana from [facility] in [place] mw2 Station. They denied due to capacity. 21:54 initiated a transfer with Micah from [facility] in [place], [place]. mw2 21:59 [facility] denied due to [place]. mw2 23:00 Assisted provider with central line placement. Set up central line tray. Triple lumen as6 line placed in left femoral. Line placed by Raghavendra Simmons MD Placement verified by blood return, Dressed with Tegaderm, Patient tolerated well. 23:20 Rogers Carbajal MD is Hospitalizing Provider. angel 23:28 initiated a transfer with Magdalena from [facility]. mw2 11/20 00:00 [facility] denied due to capacity. mw2 00:00 Terry cath removed intact, balloon deflated. as6 00:00 Terry cath inserted, using sterile technique, 16 Fr., by wi, balloon inflated, to as6 gravity drainage. 00:05 reinitiated a transfer with Susannah from [facility] Transfer [place]. [facility] denied due mw2 to capacity. 05:56 Police called Serg SUTTON to call out the Machine Silver Stripper for the patient. mw2 06:26 Raghavendra Simmons MD is Pronouncing Provider. angel Administered Medications: 02:02 Discontinued: D5 -1/4 NS 1000 ml IV at 100 ml/hr continuous angel 11/19 17:53 Drug: Octreotide 50 mcg Route: IV; Rate: calculated rate; Site: left hand; jd3 17:53 Drug: ProTONIX (pantoprazole) 40 mg Route: IVP; Site: left hand; jd3 17:54 Drug: Zofran (Ondansetron) 8 mg Route: IVP; Site: left hand; jd3 17:54 Drug: Promethazine 6.25 mg Route: IVP; Site: left hand; jd3 18:50 Not Given (Physician Discretion): Vitamin K1 (phytonadione) 10 mg Sub-Q once jr8 19:23 CANCELLED (Physician Discretion): NS 0.9% 1000 ml IV at 1000 ml once jd3 19:26 Drug: D50W 50 ml Route: IVP; Site: left antecubital; vg1 19:26 Drug: D5 -1/4 NS 1000 ml Route: IV; Rate: 100 ml/hr; Site: left antecubital; vg1 19:32 Drug: ProTONIX (pantoprazole) 8 mg/hr Route: IV; Rate: 25 ml/hr; Site: right femoral; al4 19:32 Drug: Octreotide Infusion (50 mcg/hr) - (Octreotide 500 mcg, NS 0.9% 500 ml) Route: IV; al4 Rate: 50 ml/hr; Site: right femoral; 19:37 Drug: Vitamin K1 (phytonadione) 10 mg Route: Sub-Q; Site: abdomen; jd3 19:42 Drug: Acetadote (acetylcysteine) 150 mg/kg Route: IV; Rate: calculated rate; Site: jd3 right femoral; 20:04 Drug: Zosyn (piperacillin-tazobactam) 3.375 grams Route: IVPB; Infused Over: 60 mins; st1 Site: right femoral; 21:30 Drug: NS 0.9% 500 ml Route: IV; Rate: bolus; Site: left antecubital; as6 22:00 Drug: Acetadote (acetylcysteine) 30 grams Route: IV; Rate: calculated rate; Site: right as6 femoral; 22:00 Drug: NS 0.9% 500 ml Route: IV; Rate: bolus; Site: left antecubital; as6 22:07 Drug: Vitamin K1 (phytonadione) 10 mg Route: IM; Site: right deltoid; as6 23:25 Drug: Dopamine drip 5 mcg/kg/min - (DOPamine 400 mg, D5W 250 ml) Route: IV; Rate: as6 calculated rate; Site: left femoral; 11/20 03:23 Drug: NS 0.9% 1000 ml Route: IV; Rate: 1 bolus; Site: right femoral; as6 03:23 Drug: Sodium Bicarbonate 1 amp Route: IVP; Site: left femoral; as6 03:24 Drug: D5W 1000 ml, Sodium Bicarbonate 150 mEq Route: IV; Rate: 125 ml/hr; Site: left as6 femoral; 03:26 Drug: Insulin Regular Human 10 units {Co-Signature: al4 (Palmer Parham).} Route: as6 IVP; Site: right femoral; 03:29 Drug: Lasix (furosemide) 60 mg Route: IVP; Site: right femoral; as6 03:36 Drug: D50W 50 ml Route: IVP; Site: right femoral; as6 03:40 Drug: Calcium Gluconate 1 grams Route: IVPB; Infused Over: 10 mins; Site: right femoral;as6 03:54 Drug: Sodium Bicarbonate 1 amp Route: IVP; Site: left femoral; as6 04:52 Drug: Kayexalate (polystyrene) 60 grams Route: PO; as6 05:22 Drug: EPINEPHrine 0.1mg/mL 1:10,000 1 mg Route: IVP; Site: right femoral; mk 05:24 Drug: Calcium Chloride 1 grams Route: IVP; Site: right femoral; mk 05:24 Drug: D50W 50 ml Route: IVP; Site: right femoral; Outcome: 11/19 20:03 ER care complete, transfer ordered by . angel 23:27 Decision to Hospitalize by Provider. angel 23:59 ER care complete, transfer ordered by MD. [facility] 11/20 09:50 Patient left the ED. jd3 Signatures: Dispatcher [employer] EDMS Raghavendra Simmons MD MD cha Sanford, Demi ds1 Troy Brock PA PA 8 Holden Giraldo RN RN [email or web address] Josiah Adair2 Cecile Suero, RN RN lj1 Jaja Salcedo RN RN clara1 Fili Hirsch RN RN as6 Palmer Parham Madeline, CARMEN RN Cassie Ordonez RN RN st1 Palmer kyle4 Corrections: (The following items were deleted from the chart) 11/19 20:06 18:45 Reassessment: No changes from previously documented assessment. Patient and/or jd3 family updated on plan of care and expected duration. Pain level reassessed. pt continues to report shortness of breath with abdominal pain. pt continues to have tachypnea. mother at bedside Patient states symptoms have not improved. jd3 11/20 00:08 11/19 19:25 initiated a transfer with Mayra Sanchez from [facility]. 2 [facility] denied to capacity 2 11/20 07:15 07:05 CPR assessment: unresponsive, no respiratory effort, intubated, mechanical mk ventilation, cyanotic, pale, pulses present w/ compressions, asystole on monitor 07:15 07:05 Cardiac rhythm is asystole [facility] 07:17 07:16 Reassessment: pulse check 0524. [facility]
--- NOTE | 2021-11-19 20:04 | EDPHYS ---
Physician Documentation [facility] Name: Dhaval Morfin Age: 36 yrs Sex: Male : 1985 Arrival Date: 11/19/2021 Time: 16:39 Bed 2 Private MD: ED Physician Raghavendra Simmons HPI: 11/19 17:43 This 36 yrs old Male presents to ER via Wheelchair with complaints of Vomiting Blood. jr8 17:43 This is a 36-year-old male patient that presented to the emergency room with worsening jr8 of symptoms since yesterday. Patient stated that he was seen yesterday for upper abdominal discomfort. Patient stated that he had been heavily drinking for the last week and took several Tylenol over the course of the last 24 hours for "pain". Patient stated that he recently from his fiance which is caused him to be significantly depressed and to start drinking. Patient yesterday was worked up and had a platelet count of 11 and elevated transaminase levels. Patient was eventually discharged from the emergency room yesterday. Patient denied any hematemesis or melena yesterday. Today he stated that he started having multiple episodes of hematemesis prior to arrival. Patient upon arrival in triage room is pale with bruising to the face, arms, legs with various amounts of petechia present. Historical: - Allergies: 11/20 00:03 No Known Allergies; as6 - Home Meds: 00:03 None [Active]; as6 - PMHx: 00:03 Bipolar disorder; as6 - PSHx: 00:03 hernia; as6 - Immunization history:: Adult Immunizations up to date. - Social history:: Smoking status: Patient reports the use of cigarette tobacco products, smokes one pack cigarettes per day. ROS: 11/19 17:43 Eyes: Negative for injury, pain, redness, and discharge, ENT: Negative for injury, jr8 pain, and discharge, Neck: Negative for injury, pain, and swelling, Cardiovascular: Negative for chest pain, palpitations, and edema. Back: Negative for injury and pain, MS/Extremity: Negative for injury and deformity. Respiratory: Positive for shortness of breath. Abdomen/GI: Positive for abdominal pain, hematemesis. Skin: Positive for ecchymosis, pallor. Neuro: Positive for headache. Exam: 17:43 MS/ Extremity: Pulses equal, no cyanosis. Neurovascular intact. Full, normal range jr8 of motion. Neuro: Awake and alert, GCS 15, oriented to person, place, time, and situation. Cranial nerves II-XII grossly intact. Motor strength 5/5 in all extremities. Sensory grossly intact. 17:43 Constitutional: The patient appears alert, awake, in obvious distress, moderately distressed. 17:43 Head/face: Noted is ecchymosis, that is moderate, of the right eye and left eye. 17:43 Eyes: Pupils: equal, round, and reactive to light and accomodation, Extraocular movements: intact throughout, Conjunctiva: subconjunctival hemorrhage(s), are present in both eyes, Corneas: are normal, Sclera: no appreciated abnormality, Anterior chamber: normal, Lids and lashes: appear normal. 17:43 ENT: Nose: is normal, Mouth: Lips: dry, Oral mucosa: pink and intact, dry blood noted to tongue, Posterior pharynx: Airway: patent, Tonsils: are normal in appearance. 17:43 Cardiovascular: Rate: tachycardic, Rhythm: regular, Pulses: Pulses are 2+ in right radial artery and left radial artery. Heart sounds: normal, normal S1and S2. 17:43 Respiratory: the patient does not display signs of respiratory distress, Respirations: tachypnea, that is mild, Breath sounds: are clear throughout. 17:43 Abdomen/GI: Inspection: small amount of petechia noted to right side of abdomen, Bowel sounds: active, all quadrants, Palpation: soft, in all quadrants, mild abdominal tenderness, in the epigastric area, right upper quadrant and left upper quadrant, mass, is not appreciated, rebound tenderness, is not appreciated, voluntary guarding, is not appreciated, involuntary guarding, is not appreciated, no appreciated organomegaly. 17:43 Skin: Various amounts of ecchymosis and petechia noted to the arms and legs along with the abdomen and face. Vital Signs: 17:04 BP 100 / 46; Pulse 127; Resp 32; Temp 96.8; Pulse Ox 99% ; ll1 18:41 BP 96 / 52; Pulse 114; Resp 38 S; Temp 97.2(TE); Pulse Ox 97% on R/A; jd3 18:45 Weight 118 kg (R); jd3 19:35 BP 109 / 55; Pulse 117; Resp 44; Temp 98.0; Pulse Ox 97% ; st1 20:57 BP 81 / 33; Pulse 114; Resp 27 S; Pulse Ox 70% on Non-rebreather mask; as6 21:12 BP 104 / 92; Pulse 94; Resp 34 S; as6 21:35 BP 115 / 73; Pulse 97; Resp 18 A; Pulse Ox 91% on 100% FiO2 ETT vent; as6 22:00 BP 67 / 21; Pulse 85; Resp 24 A; Pulse Ox 96% on 100% FiO2 ETT vent; as6 22:15 BP 89 / 21; Pulse 84; Resp 22 A; Pulse Ox 98% on 100% FiO2 ETT vent; as6 22:30 BP 91 / 25; Pulse 91; Resp 27 A; Pulse Ox 100% on 100% FiO2 ETT vent; as6 22:45 BP 85 / 47; Pulse 92; Resp 27 A; Pulse Ox 100% on 100% FiO2 ETT vent; as6 23:00 BP 100 / 18; Pulse 89; Resp 28 A; Pulse Ox 100% on 100% FiO2 ETT vent; as6 23:15 BP 92 / 18; Pulse 91; Resp 28 A; Pulse Ox 100% on 100% FiO2 ETT vent; as6 23:30 BP 100 / 28; Pulse 102; Resp 28 A; Pulse Ox 100% on 100% FiO2 ETT vent; as6 23:45 BP 112 / 25; Pulse 102; Resp 26; Temp 94.6(C); Pulse Ox 100% on 100% FiO2 ETT vent; as6 11/20 00:00 BP 96 / 27; Pulse 99; Resp 28 A; Temp 95.3(C); Pulse Ox 100% on 75% FiO2 ETT vent; as6 00:30 BP 95 / 26; Pulse 102; Resp 29 A; Temp 95.9(C); Pulse Ox 99% on 75% FiO2 ETT vent; as6 01:00 BP 105 / 67; Pulse 86; Resp 30 A; Temp 96.5(C); Pulse Ox 100% on 75% FiO2 ETT vent; as6 01:30 BP 94 / 61; Pulse 86; Resp 31 A; Temp 97.3(C); Pulse Ox 98% on 75% FiO2 ETT vent; as6 02:00 BP 82 / 21; Pulse 89; Resp 29 A; Temp 98.0(C); Pulse Ox 100% on 75% FiO2 ETT vent; as6 02:30 BP 89 / 13; Pulse 90; Resp 29 A; Temp 98.8(C); Pulse Ox 85% on 100% FiO2 ETT vent; as6 03:00 BP 74 / 18; Pulse 84; Resp 27 A; Temp 99.6(C); Pulse Ox 99% on 100% FiO2 ETT vent; as6 03:30 BP 69 / 39; Pulse 86; Resp 26 A; Temp 100.2(C); Pulse Ox 95% on 100% FiO2 ETT vent; as6 04:00 BP 68 / 17; Pulse 100; Resp 21 A; Temp 100.3(C); Pulse Ox 90% on 100% FiO2 ETT vent; as6 04:30 BP 85 / 48; Pulse 72; Resp 11 A; Temp 100.3(C); Pulse Ox 97% on 100% FiO2 ETT vent; as6 05:00 BP 51 / 39; Pulse 83; Resp 17 A; Temp 100.2(C); Pulse Ox 89% on 100% FiO2 ETT vent; as6 Procedures: 11/19 19:30 Central Line: the site was prepped with Betadine, in sterile fashion, a triple lumen jr8 catheter was inserted, in the right femoral vein, in 1 attempts. placement was verified, by blood return, the site was dressed with 4X4s, Tegaderm, foam tape, using sterile technique, the patient tolerated the procedure, well. 23:14 Central Line: the site was prepped with second central line placed left groin , femoral angel vein, sterile technique. MDM: 17:06 Patient medically screened. jr8 17:15 ED course: . rn 23:11 Differential Diagnosis: CVA, hypoglycemia, intracranial bleed, meningitis, pneumonia, angel sepsis, UTI, volume depletion. Data reviewed: vital signs, nurses notes, EMS record, lab test result(s), EKG, radiologic studies, CT scan, plain films. Data interpreted: child monitor: rate is 117 beats/min, rhythm is regular, Pulse oximetry: on room air is 97 %. Test interpretation: by ED physician or midlevel provider: ECG, plain radiologic studies. Counseling: I had a detailed discussion with the patient and/or guardian regarding: the historical points, exam findings, and any diagnostic results supporting the discharge/admit diagnosis, lab results, radiology results, the need for further work-up and treatment in the hospital. ED course: no beds sue , kailyn , lori or carolyn. 23:51 ED course: hospitalist did not want to admit to icu but rather keep in er status and angel consult, medicine , pulmonary and gi if available. 11/19 17:07 Order name: Basic Metabolic Panel; Complete Time: 18:51 [facility] 11/19 17:07 Order name: CBC with Diff; Complete Time: 21:43 [facility] 11/19 17:07 Order name: LFT's; Complete Time: 18:51 [facility] 11/19 17:07 Order name: Magnesium; Complete Time: 18:51 [facility] 11/19 17:07 Order name: NT PRO-BNP; Complete Time: 18:51 [facility] 11/19 17:07 Order name: PT-INR; Complete Time: 18:27 [facility] 11/19 17:07 Order name: Troponin (emerg Dept Use Only); Complete Time: 18:51 [facility] 11/19 17:07 Order name: Acetaminophen; Complete Time: 18:51 [facility] 11/19 17:07 Order name: TS [facility] 11/19 17:08 Order name: Lipase; Complete Time: 18:51 [facility] 11/19 17:21 Order name: RBC Leukoreduced (Pheresis 2) [facility] 11/19 17:54 Order name: Frozen Plasma 24 Thawed [facility] 11/19 19:20 Order name: SARS-COV-2 RT PCR (Document "Date of Onset" if Symptomatic); Complete Time: rn 21:43 11/19 19:43 Order name: Glucose, Ancillary Testing; Complete Time: 21:43 [facility] 11/19 19:47 Order name: Blood Culture Adult (2) rn 11/19 19:47 Order name: Lactate; Complete Time: 06:41 11/19 20:20 Order name: AMMONIA [facility] 11/19 20:21 Order name: Ammonia; Complete Time: 06:41 [facility] 11/19 20:28 Order name: CBC with Diff; Complete Time: 21:43 [facility] 11/19 20:28 Order name: Comprehensive Metabolic Panel; Complete Time: 23:09 [facility] 11/19 20:37 Order name: Manual Differential; Complete Time: 21:43 [facility] 11/19 21:12 Order name: Packed RBCs (Additional Unit) [facility] 11/19 21:13 Order name: Fresh Frozen Plasma [facility] 11/19 21:13 Order name: Platelets, Leukored Pheresis [facility] 11/19 21:35 Order name: ABO/RH no charge; Complete Time: 21:43 [facility] 11/19 17:07 Order name: XRAY Chest (1 view); Complete Time: 18:51 [facility] 11/19 17:07 Order name: CT Traumagram (Head C Spine CAP W Con); Complete Time: 18:35 [facility] 11/19 21:35 Order name: Chest Single View XRAY; Complete Time: 23:09 as6 11/19 23:09 Order name: PRBC [facility] 11/19 23:11 Order name: CBC with Diff; Complete Time: 01:51 [facility] 11/19 23:11 Order name: Comprehensive Metabolic Panel; Complete Time: 06:41 [facility] 11/20 03:39 Order name: ABG Arterial Blood Gas; Complete Time: 06:41 [facility] 11/20 04:11 Order name: Glucose, Ancillary Testing; Complete Time: 06:41 [facility] 11/19 17:07 Order name: EKG; Complete Time: 17:08 [facility] 11/19 17:07 Order name: Cardiac monitoring; Complete Time: 17:26 [facility] 11/19 17:07 Order name: EKG - Nurse/Tech; Complete Time: 17:26 [facility] 11/19 17:07 Order name: IV Saline Lock; Complete Time: 17:26 [facility] 11/19 17:07 Order name: Labs collected and sent; Complete Time: 17:26 [facility] 11/19 17:07 Order name: O2 Per Protocol; Complete Time: 17:26 [facility] 11/19 17:07 Order name: O2 Sat Monitoring; Complete Time: 17:26 [facility] 11/19 19:20 Order name: Terry; Complete Time: 19:35 rn 11/19 21:43 Order name: NG Tube; Complete Time: 22:03 [facility] 11/19 23:09 Order name: Central Line Kit; Complete Time: 23:53 [facility] Administered Medications: 11/20 02:02 Discontinued: D5 -1/4 NS 1000 ml IV at 100 ml/hr continuous [facility] 11/19 17:53 Drug: Octreotide 50 mcg Route: IV; Rate: calculated rate; Site: left hand; jd3 17:53 Drug: ProTONIX (pantoprazole) 40 mg Route: IVP; Site: left hand; jd3 17:54 Drug: Zofran (Ondansetron) 8 mg Route: IVP; Site: left hand; jd3 17:54 Drug: Promethazine 6.25 mg Route: IVP; Site: left hand; jd3 18:50 Not Given (Physician Discretion): Vitamin K1 (phytonadione) 10 mg Sub-Q once jr8 19:23 CANCELLED (Physician Discretion): NS 0.9% 1000 ml IV at 1000 ml once jd3 19:26 Drug: D50W 50 ml Route: IVP; Site: left antecubital; vg1 19:26 Drug: D5 -1/4 NS 1000 ml Route: IV; Rate: 100 ml/hr; Site: left antecubital; vg1 19:32 Drug: ProTONIX (pantoprazole) 8 mg/hr Route: IV; Rate: 25 ml/hr; Site: right femoral; al4 19:32 Drug: Octreotide Infusion (50 mcg/hr) - (Octreotide 500 mcg, NS 0.9% 500 ml) Route: IV; al4 Rate: 50 ml/hr; Site: right femoral; 19:37 Drug: Vitamin K1 (phytonadione) 10 mg Route: Sub-Q; Site: abdomen; jd3 19:42 Drug: Acetadote (acetylcysteine) 150 mg/kg Route: IV; Rate: calculated rate; Site: jd3 right femoral; 20:04 Drug: Zosyn (piperacillin-tazobactam) 3.375 grams Route: IVPB; Infused Over: 60 mins; st1 Site: right femoral; 21:30 Drug: NS 0.9% 500 ml Route: IV; Rate: bolus; Site: left antecubital; as6 22:00 Drug: Acetadote (acetylcysteine) 30 grams Route: IV; Rate: calculated rate; Site: right as6 femoral; 22:00 Drug: NS 0.9% 500 ml Route: IV; Rate: bolus; Site: left antecubital; as6 22:07 Drug: Vitamin K1 (phytonadione) 10 mg Route: IM; Site: right deltoid; as6 23:25 Drug: Dopamine drip 5 mcg/kg/min - (DOPamine 400 mg, D5W 250 ml) Route: IV; Rate: as6 calculated rate; Site: left femoral; 11/20 03:23 Drug: NS 0.9% 1000 ml Route: IV; Rate: 1 bolus; Site: right femoral; as6 03:23 Drug: Sodium Bicarbonate 1 amp Route: IVP; Site: left femoral; as6 03:24 Drug: D5W 1000 ml, Sodium Bicarbonate 150 mEq Route: IV; Rate: 125 ml/hr; Site: left as6 femoral; 03:26 Drug: Insulin Regular Human 10 units {Co-Signature: al4 (Palmer Whitfield.} Route: as6 IVP; Site: right femoral; 03:29 Drug: Lasix (furosemide) 60 mg Route: IVP; Site: right femoral; as6 03:36 Drug: D50W 50 ml Route: IVP; Site: right femoral; as6 03:40 Drug: Calcium Gluconate 1 grams Route: IVPB; Infused Over: 10 mins; Site: right femoral;as6 03:54 Drug: Sodium Bicarbonate 1 amp Route: IVP; Site: left femoral; as6 04:52 Drug: Kayexalate (polystyrene) 60 grams Route: PO; as6 05:22 Drug: EPINEPHrine 0.1mg/mL 1:10,000 1 mg Route: IVP; Site: right femoral; mk 05:24 Drug: Calcium Chloride 1 grams Route: IVP; Site: right femoral; mk 05:24 Drug: D50W 50 ml Route: IVP; Site: right femoral; Disposition: 11/19 23:11 Co-signature as Attending Physician, Raghavendra Simmons MD I agree with the assessment and angel plan of care. Disposition Summary: 11/20/21 06:32 Patient Location: Rn Licensed Practical(11/20/21 06:32) angel Pronouncing Physician: Raghavendra Simmons cha Time of : 05:27 11/20/2021 angel Diagnosis - Hepatic failure, unspecified with coma angel - Acute kidney failure, unspecified(11/20/21 06:32) angel - GI Bleed/ Gastrointestinal hemorrhage, unspecified - UPPER, MASSIVE(11/20/21 06:32) angel - Anemia, unspecified angel - Elevated white blood cell count(11/20/21 06:32) angel - Abnormal coagulation profile(11/20/21 06:32) angel - Coagulation defect, unspecified(11/20/21 06:32) angel - Acute respiratory failure with hypoxia(11/20/21 06:32) angel - Hypotension, unspecified(11/20/21 06:32) angel - Cardiogenic shock angel - Hyperkalemia(11/20/21 06:32) angel Critical care time excluding procedures: 11/20 07:28 Critical care time: Bedside Care: 30 minutes, Consultation: 20 minutes, Family jr8 Intervention: 15 minutes. Total time: 65 minutes Signatures: Dispatcher [employer] EDMS Raghavendra Simmons MD MD cha Nieto, Roman, MD MD rn Roszak, MADISON Simmons jr8 Holden Giraldo, RN RN jd3 Cecile Suero, RN RN vg1 Jaja Salcedo RN RN ll1 Fili Hirsch RN RN as6 Palmer Parham al4 Theresa Winston RN RN Cassie Ordonez RN RN st1 Palmer Parham al4 Corrections: (The following items were deleted from the chart) 11/19 19:23 18:44 NS 0.9% 1000 ml IV at 1000 ml once ordered. jr8 jd3 22:04 20:03 to liver center angel angel 23:14 20:03 Other Acute Care Facility angel angel 23:14 20:03 Higher level of care angel angel 23:14 20:03 Critical angel angel 23:14 20:03 new angel angel 23:14 20:03 have worsened angel angel 23:14 20:03 Abnormal results of liver function studies angel angel 23:14 20:03 Hepatic failure, unspecified without coma - tylenol overdose, intentional angel angel 23:14 22:04 to liver center angel angel 23:14 22:04 Acute kidney failure, unspecified angel angel 23:14 22:04 Hypoglycemia, unspecified angel angel 23:14 22:04 Elevated white blood cell count angel angel 23:14 22:04 GI Bleed/ Gastrointestinal hemorrhage, unspecified - upper , massive angel angel 23:14 22:04 Abnormal coagulation profile angel angel 23:14 22:04 Coagulation defect, unspecified angel angel :29 23:10 Packed RBC Leukored ordered. EDMS EDMS 23:29 23:10 ABO/RH typing ordered. EDMS EDMS 23:29 23:10 Antibody Screen ordered. EDMS EDMS 23:52 23:27 Inpatient Admission angel angel 23:52 23:27 Solomon Rogersdonell ortiz angel 23:52 23:27 Intensive Care Unit angel angel 23:52 23:27 Critical angel angel 23:52 23:27 new angel angel 23:52 23:27 have worsened angel angel 23:52 23:27 Standard angel angel 23:52 23:27 angel angel 23:52 23:27 Hepatic failure, unspecified without coma - intentional tylenol overdose angel angel 23:52 23:27 Elevated white blood cell count angel angel 23:52 23:27 Acute kidney failure, unspecified angel angel 23:52 23:27 Hypoglycemia, unspecified angel angel 23:52 23:27 GI Bleed/ Gastrointestinal hemorrhage, unspecified - massive , upper anegl angel 23:52 23:27 Acute respiratory failure with hypoxia angel angel 23:52 23:27 Hypotension, unspecified angel angel 23:52 23:27 Sepsis, unspecified organism angel angel 11/20 02:43 11/19 23:59 to [facility] angel angel 11/20 06:26 11/19 23:59 Other Acute Care Facility angel angel 11/20 06:11/19 23:59 Higher level of care angel ortiz 11/20 06:11/19 23:59 Critical angel angel 11/20 06:26 11/19 23:59 new on license of [facility] 11/20 06:11/19 23:59 have worsened angel ortiz 11/20 06:11/19 23:59 Hepatic failure, unspecified without coma angle angel 11/20 06:11/19 23:59 Acute respiratory failure with hypoxia angel angel 11/20 06:26 11/19 23:59 Elevated white blood cell count angel angel 11/20 06:26 11/19 23:59 Hyperkalemia angel angel 11/20 06:26 11/19 23:59 Hypotension, unspecified angel angel 11/20 06:11/19 23:59 Acute kidney failure, unspecified angel angel 11/20 06:26 11/19 23:59 GI Bleed/ Gastrointestinal hemorrhage, unspecified - upper, massive angel ortiz 11/20 06:26 11/19 23:59 Hypoglycemia, unspecified angel angel 11/20 06:11/19 23:59 Secondary thrombocytopenia on license of [facility] 11/20 06:26 02:43 to acute care [facility], liver [facility] 02:43 Acidosis on license of [facility] 11/19 19:21 OSMOLALITY, SERUM+SC.LAB.BRZ ordered. EDMS EDMS 11/20 19:21 URINE DRUG SCREEN+CHEM UR.LAB.BRZ ordered. EDMS EDMS
[2021-11-19] MEDS ORDERED: NOREPINEPHRINE 4mg/D5W 250mL 4 MG/250 ML BAG IV ONE ×2 (20:42→23:56)
[2021-11-19] MEDS ORDERED: RSI MEDICATION KIT IV ONE (20:42)
[2021-11-19] MEDS ORDERED: propofoL 1,000 MG/100 ML VIAL IV ONE (20:42)
[2021-11-19] MEDS ORDERED: propofoL 200 MG/20 ML VIAL IV ONE (20:54)
[2021-11-19 20:57] LABS: Blood Morphology Comment NOTED (NOT SEEN); Platelet Estimate DECR; Polychromasia 1+
[2021-11-19 21:05] LABS: Absolute Lymphocytes (CBC) 0.7 K/uL (0.7-4.9); Hematocrit 34.2 % (39.6-49.0); Lymphocytes % 3.6 % (15.3-44.8); MPV 8.2 fL (7.6-11.3); RBC Red Blood Cell Count 3.27 M/uL (4.33-5.43)
[2021-11-19] MEDS ORDERED: MIDAZOLAM HCL 2 MG/2 ML INJ ONE ×2 (21:55→22:44)
[2021-11-19 21:57] LABS: Albumin 1.9 g/dL (3.4-5.0)
[2021-11-19 21:59] LABS: Potassium 5.8 mmol/L (3.5-5.1)
--- NOTE | 2021-11-19 22:09 | RAD REPORT ---
EXAM DESCRIPTION: RAD - Chest Single View - 11/19/2021 9:45 pm CLINICAL HISTORY: POST ETT Chest pain. COMPARISON: Chest Single View dated 11/19/2021 FINDINGS: Portable technique limits examination quality. Tip of the endotracheal tube is above the christi, approximately 1 cm above the level of the aortic ar ch. The lungs are grossly clear. The heart is normal in size.Enteric tube coils in the stomach.
[2021-11-19] MEDS ORDERED: DOPAMINE/D5W 400 MG/250 ML BAG IV ONE (23:09)
[2021-11-19] MEDS ORDERED: FENTANYL CITR 100 MCG/2 ML ONE (23:45)
[2021-11-19] MEDS ORDERED: LORazepam 2 MG/ML VIAL ONE (23:52)
[2021-11-20] MEDS ORDERED: LORazepam 2 MG/ML VIAL ONE (00:37)
[2021-11-20] MEDS ORDERED: FENTANYL CITR 100 MCG/2 ML ONE (00:37)
[2021-11-20 00:48] LABS: Absolute Lymphocytes (CBC) 0.9 K/uL (0.7-4.9); Hematocrit 30.7 % (39.6-49.0); Lymphocytes % 12.5 % (15.3-44.8); MPV 8.1 fL (7.6-11.3); RBC Red Blood Cell Count 3.06 M/uL (4.33-5.43)
[2021-11-20 01:33] LABS: Bilirubin Total 3.9 mg/dL (0.2-1.0); Protein, Total 4.3 g/dL (6.4-8.2)
[2021-11-20 02:03] LABS: Potassium 6.4 mmol/L (3.5-5.1)
[2021-11-20] MEDS ORDERED: FUROSEMIDE 20 MG/ 2ML VIAL ONE (02:15)
[2021-11-20] MEDS ORDERED: FUROSEMIDE 40 MG/4 ML VIAL ONE (02:15)
[2021-11-20] MEDS ORDERED: SODIUM BICARB 50 MEQ/50ML VIAL ONE ×3 (02:16→03:48)
[2021-11-20] MEDS ORDERED: INSULIN -REGULAR HUMAN 50 UNIT/0.5 ML ML ONE (02:16)
[2021-11-20] MEDS ORDERED: D5W 1,000 ML IV ONE (02:17)
[2021-11-20] MEDS ORDERED: NA CHLORIDE 0.9% 1,000 ML ONE (02:17)
[2021-11-20] MEDS ORDERED: CALCIUM GLUCONATE 1 GM IVPB 1 GM/50 ML BAG IV ONE (02:17)
[2021-11-20] MEDS ORDERED: SOD POLYSTYREN SUL 15 GM/60 ML UCUP ONE (02:31)
[2021-11-20] MEDS ORDERED: NOREPINEPHRINE 4mg/D5W 250mL 4 MG/250 ML BAG IV ONE ×2 (02:51→04:56)
[2021-11-20] MEDS ORDERED: D50W 50 ML IV ONE (03:32)
[2021-11-20 03:45] LABS: Blood Gas Oxyhemoglobin 83.1 % (94-97); Blood O2 Saturation 84.5 % (92-98.5)
[2021-11-20] MEDS ORDERED: ALBUTEROL 2.5 MG/3 ML NEB SOL ONE (04:57)
[2021-11-20] MEDS ORDERED: IPRATROPIUM BROM 0.5MG/2.5ML ONE (04:57)
[2021-11-20 10:40] VITALS: BP 51/39; TEMP 100.2; O2SAT 89
--- NOTE | 2021-11-21 07:51 | EKG ---
Test Date: 2021-11-19 Test Time: 17:11:04 Code Inspector: STAR MEASUREMENT RESULTS: Intervals: Rate: 118 WA: 128 QRSD: 102 QT: 306 QTc: 428 [place]: P: 69 WA: 128 QRS: 51 T: 44 INTERPRETIVE STATEMENTS: Sinus tachycardia Possible Left atrial enlargement Possible Inferior infarct, age undetermined Abnormal ECG No previous ECG available for comparison Electronically Signed On 11-21-21 07:46:05 SUPERVISOR ELECT[employer] by Anson Pringle
== END 2021-11-20 09:50 ==
LOC: ER 16:37
PROC: 30233R1 Transfusion of Nonautologous Platelets into Peripheral Vein, Percutaneous Approach (ICD-10-PCS; principal; 2021-11-20)
PROC: 30233N1 Transfusion of Nonautologous Red Blood Cells into Peripheral Vein, Percutaneous Approach (ICD-10-PCS; 2021-11-20)
PROC: 06HM33Z Insertion of Infusion Device into Right Femoral Vein, Percutaneous Approach (ICD-10-PCS; 2021-11-20)
PROC: 06HN33Z Insertion of Infusion Device into Left Femoral Vein, Percutaneous Approach (ICD-10-PCS; 2021-11-20)
DX: K72.90 Hepatic failure, unspecified without coma (principal); N17.9 Acute kidney failure, unspecified; J96.01 Acute respiratory failure with hypoxia; R57.0 Cardiogenic shock; D64.9 Anemia, unspecified; E87.5 Hyperkalemia; K92.0 Hematemesis; D72.829 Elevated white blood cell count, unspecified; D68.9 Coagulation defect, unspecified; F17.210 Nicotine dependence, cigarettes, uncomplicated; Z20.822 Contact with and (suspected) exposure to COVID-19
CPT/HCPCS: 93005; 87040 ×2; 85025 ×3; 80048; 36415; 82140; 86900; 83735; 86850; 87205; 80329; 85610; 86901; 82947 ×2; 80076; 83605; 84484; 83690; 86927; 80053 ×2; 83880; 70450; 72125; 71260; 74177; 71045 ×2; 94002; 82805; 31500; 51702; 96372; 92950; 99291; 99292; 36430; 36556 ×2; U0003; Q9967; J2704 ×2; J1940 ×2; J2550; J0330 ×2; J3430 ×2; J2354 ×3; J2543; C9113 ×3; J2250 ×2; J3010 ×2; J0132 ×3; J0171; J0610; P9035 ×2; P9016 ×4; P9059 ×2; P9017; J1265; J7060; J7799; J7050 ×4; J7040 ×5; J7030 ×3; J2405; P9100 ×2; 87077; 87186